=== PATIENT | female | born 1990 | race Caucasian/White ===

== ENCOUNTER 2018-05-27 17:36 | Emergency (ER) | payer OTHER ==
--- NOTE | 2018-05-27 17:58 | EDPHY ---
H & P Stated Complaint: cough, fever sent from for [facility] 18K Time Seen by Provider: 05/27/18 17:58 HPI/ROS: CHIEF COMPLAINT: Fever, cough, myalgias HISTORY OF PRESENT ILLNESS: The patient is referred to the emergency department for evaluation of fever, cough and myalgias that have been occurring for the past 2-3 days. The patient was treated with IV fluids. She did have blood work performed which demonstrated leukocytosis. By report she had a negative rapid flu test and a negative strep test. The patient did not receive any chest imaging and was sent to the ED for further evaluation. She did receive IV fluids prior to arrival. The patient tells me she otherwise is healthy. 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 The patient denies any abdominal pain, vomiting or dysuria. She complains of a mild frontal headache. She denies nuchal rigidity or acute neurologic complaints. She has no complaints of rash or significant arthralgias. REVIEW OF SYSTEMS: A comprehensive 10 point review of systems is otherwise negative aside from elements mentioned in the history of present illness. Source: Patient Exam Limitations: No limitations - Personal History LMP (Females 10-55): 22-28 Days Ago - Medical/Surgical History Hx Asthma: No Hx Chronic Respiratory Disease: No Hx Diabetes: No Hx Cardiac Disease: No Hx Renal Disease: No Hx Cirrhosis: No Hx Alcoholism: No Hx HIV/AIDS: No Hx Splenectomy or Spleen Trauma: No Other PMH: denies - Social History Smoking Status: Never smoked - Physical Exam Exam: General Appearance: Alert, no distress Eyes: Pupils equal and round no pallor or injection ENT, Mouth: Mucous membranes moist Respiratory: There are no retractions, lungs are clear to auscultation Cardiovascular: Tachycardic Gastrointestinal: Abdomen is soft and nontender, no masses, bowel sounds normal Neurological: A&O, normal motor function, normal sensory exam, normal cranial nerves Skin: Warm and dry, no rashes Musculoskeletal: Neck is supple nontender, no meningeal symptoms Extremities: symmetrical, full range of motion Psychiatric: Patient is oriented X 3, there is no agitation Constitutional: Initial Vital Signs Temperature (C) 38.1 C 05/27/18 17:52 Heart Rate 118 H 05/27/18 17:52 Respiratory Rate 118 H 05/27/18 17:52 Blood Pressure 124/90 H 05/27/18 17:52 O2 Sat (%) 97 05/27/18 17:52 O2 Delivery Mode Room Air Allergies/Adverse Reactions: No Known Allergies Allergy (Unverified 05/27/18 17:51) Home Medications: Medication Instructions Recorded NK [No Known Home Meds] 05/27/18 Medical Decision Making - Diagnostics Imaging Results: Imaging Impressions Chest X-Ray 05/27/18 18:08 Impression: Normal chest. ED Course/Re-evaluation: The patient presents the ED with symptoms consistent with a viral upper respiratory infection with fever, cough and myalgias. The patient has no clinical evidence of meningitis. She is nontoxic and well-appearing. The patient's chest x-ray demonstrates no evidence of a pneumonia. A respiratory pathogen panel has been sent. The patient is tolerating p.o. without vomiting. The patient can be discharged home. She will be given a prescription for a albuterol inhaler and a prescription for Tessalon Perles. The patient is advised to return to the ED for markedly worsening symptoms or other concerns. Differential Diagnosis: Differential diagnosis considered includes asthma, bronchitis, pneumonia - Data Points Medications Given: Discontinued Medications Albuterol (Proventil Neb) 3 ml IH EDNOW ONE Stop: 05/27/18 18:09 Last Admin: 05/27/18 18:36 Dose: 3 ml Departure - Departure Disposition: Home, Routine, Self-Care Clinical Impression: Acute bronchitis Condition: Good Instructions: Acute Bronchitis (ED) Additional Instructions: 1. Please use albuterol inhaler up to every 4 hr as needed for cough. 2. Tessalon Perles as needed for cough. 3. Please return to the ED for markedly worsening respiratory symptoms, new symptoms or other concerns. 4. Please contact the emergency department tomorrow morning at to check the results of the respiratory panel.
[2018-05-27] MEDS ORDERED: ALBUTEROL 3 ML DEYVIAL IH ONE (18:08)
[2018-05-27 19:02] VITALS: BP 124/76
== END 2018-05-27 19:03 | disposition home or self-care (01) ==
DX: J20.9 Acute bronchitis, unspecified (principal)
CPT/HCPCS: J7613